=== PATIENT | female | born 1975 | race Two or more races ===

== ENCOUNTER 2025-06-06 14:56 | Emergency (ER) | payer OTHER ==
[~2025-06-06] VITALS: Ht 166.4 cm; Wt 68.0 kg
[2025-06-06] MEDS ORDERED: ZESTRIL2.5 MG (16:28)
[2025-06-06] MEDS ORDERED: TESTIM5 GM (16:29)
[2025-06-06] MEDS ORDERED: ROSUVASTATIN CAL5 MG (16:29)
[2025-06-06] MEDS ORDERED: CLIMARA1 EAC2 (16:29)
[2025-06-06] MEDS ORDERED: SERTRALINE20 MG/1 ML (16:29)
[2025-06-06] MEDS ORDERED: METHYLPREDNISOLONE SOD SUCC 125 MG VIAL IV ONE (16:45)
[2025-06-06] MEDS ORDERED: ACETAMINOPHEN 500 MG GEL..CAP PO ONE ×2 (16:45→17:43)
[2025-06-06] MEDS ORDERED: LEVALBUTEROL HCL 1.25 MG/3 ML SOLUTION IH SCH (17:00)
[2025-06-06] MEDS ORDERED: GUAIFENESIN 200 MG/10 ML BLIST.PACK PO ONE ×2 (17:00→17:44)
[2025-06-06] MEDS ORDERED: IPRATROPIUM BROMIDE 0.5 MG/2.5 ML AMPUL.NEB IH ONE ×2 (17:00→18:24)
[2025-06-06] MEDS ORDERED: METHYLPREDNISOLONE SOD SUCC 125 MG VIAL ONE (17:44)
[2025-06-06] MEDS ORDERED: LEVALBUTEROL HCL 1.25 MG/3 ML SOLUTION IH ONE (18:23)
[2025-06-06 19:15] LABS: BASO % 1.0 % (0.1-1.2); EOS # 0.29 (0.04-0.54); EOS % 3.4 % (0.7-7.0); LYMPH # 1.84 (1.18-3.74); LYMPH % 21.9 % (19.3-53.1); MEAN PLATELET VOLUME 9.50 fl (9.4-12.4); MONO # 1.00 (0.24-0.82); MONO % 11.9 % (4.7-12.5); NEUT # 5.18 (1.56-6.13); NEUT % 61.6 % (34.0-71.1); RED CELL DISTRIBUTION WIDTH 13.9 % (11.6-14.4)
[2025-06-06 19:37] LABS: COVID-19 AG NEGATIVE (NEGATIVE)
[2025-06-06 19:39] LABS: ALT/SGPT 42.0 U/L (12-78); AST/SGOT 31.0 U/L (15-37); BILIRUBIN TOTAL 0.28 mg/dL (0.3-1.2); BUN CREA RATIO 12.0 (7.0-25.0); CREATININE SERUM 0.83 mg/dL (0.55-1.02); GFR 72.77; GLOBULINA 4.0 G/DL (2.4-3.5); GLUCOSE FASTING 93.0 mg/dL (65-100); OSMOLALITY SERUM 276.0 MOSM/KG (275-295)
[2025-06-06] MEDS ORDERED: MEDROLPACK PO (20:01)
[2025-06-06] MEDS ORDERED: ZITHROMAX500 MG PO (20:01)
[2025-06-06] MEDS ORDERED: LEVALBUTER1.25 MG/0. IH (20:01)
== END 2025-06-06 21:09 | disposition home or self-care (01) ==
LOC: ER 14:57
DX: J45.901 Unspecified asthma with (acute) exacerbation (principal); Z78.0 Asymptomatic menopausal state; I10 Essential (primary) hypertension; E78.49 Other hyperlipidemia